=== PATIENT | female | born 1950 | race Caucasian/White ===

== ENCOUNTER 2016-12-31 08:45 | Outpatient (CLI) | payer MEDICARE, BC | END 2016-12-31 09:10 | disposition home or self-care (01) | LOC: SLEEP 08:45 | PROVIDERS: ATTEND Nurse Practitioner | DX: G47.33 Obstructive sleep apnea (adult) (pediatric) (principal) ==

== ENCOUNTER → 2023-03-08 | Outpatient (CLI) | payer MEDICARE, OTHER ==
--- NOTE | 2023-03-08 15:56 | Diagnostic Imaging Report ---
INDICATION: Left breast calcifications. Patient presents for additional views. COMPARISON: 02/15/2023. TECHNIQUE: Unilateral left 2D and 3D diagnostic mammography was performed with CAD. Magnification CC and ML views as well as conventional 90 degree lateral views were performed. A repeat left MLO view was also performed due to motion artifact on the screening study. FINDINGS: There is a cluster of microcalcifications in the upper and inner aspect of the left breast at posterior depth which appear to be increased when compared with the prior exams. Several calcifications do appear to be pleomorphic. No associated soft tissue mass is identified. IMPRESSION: Indeterminate cluster of microcalcifications in the upper inner left breast at posterior depth. Tissue sampling is recommended. These would be amenable to a stereotactic biopsy approach. ACR BI-RADS Category 4: Suspicious abnormality. Result letter will be mailed to the patient. Note: At least 10% of breast cancer is not imaged by mammography. Dictated by: Dictated on workstation # [id number]
== END ==
LOC: RAD 12:44
PROVIDERS: ATTEND Internal Medicine
DX: N63.22 Unspecified lump in the left breast, upper inner quadrant (principal)
CPT/HCPCS: 77065; G0279